=== PATIENT | female | born 1970 | race Caucasian/White ===

== ENCOUNTER 2017-02-09 11:50 | Emergency (ER) | payer OTHER ==
[2017-02-09 12:03] VITALS: RESP 20; O2SAT 94
[2017-02-09] MEDS ORDERED: ONDANSETRON DISINTEGRATING 4 MG TAB PO ONE (12:28)
--- NOTE | 2017-02-09 12:33 | EDPHY ---
H & P Time Seen by Provider: 02/09/17 12:10 HPI/ROS: CHIEF COMPLAINT: Nausea, headache and back pain after fall History by patient HISTORY OF PRESENT ILLNESS: 38-year-old woman presents complaining of persistent nausea, headache, and back and tailbone pain after she slipped and fell down some bleachers 2 days ago. She denies any neck pain. She says she slid down on her back and tailbone. She did not hit her head she did not pass out. She denies any visual difficulty, focal numbness or weakness, bowel or bladder dysfunction. She has not actually vomited. She is able to eat and drink without difficulty. Pain is worse when she moves around and better when she is sitting or lying but she is able to sit on her tailbone without difficulty. She went to urgent care today to be seen because of feeling unwell and they did x-rays and told her there was no evidence of fracture but referred her here because of her nausea. She has taken some ibuprofen at home with minimal relief. She has no history of migraines. She said she went to work today but she was feeling unwell every time she got up and moved around prompting her to seek medical attention. REVIEW OF SYSTEMS: As in HPI, and all other systems reviewed and are negative Smoking Status: Heavy smoker Physical Exam: General Appearance: Alert, well-appearing. Eyes: Pupils equal and round no pallor or injection. ENT, Mouth: Mucous membranes moist. Gastrointestinal: Abdomen is soft and nontender, no masses, bowel sounds normal. Neurological: Awake, alert and oriented x 3, no pronator drift, normal gait, no pronator drift, DTRs 2+ and equal bilaterally in knees and ankles, motor 5/5 equal bilaterally in lower extremities, no pain with straight leg raise Back: No bony tenderness, positive ecchymoses lateral to upper lumbar spine, lower T-spine, no CVA tenderness Skin: Warm and dry, no rashes. Musculoskeletal: Neck is supple nontender. Positive large ecchymoses left buttock Extremities are symmetrical, full range of motion. Psychiatric: Patient has normal affect, there is no agitation. Constitutional: Initial Vital Signs Temperature (C) 37 C 02/09/17 11:59 Heart Rate 77 02/09/17 11:59 Respiratory Rate 20 02/09/17 11:59 Blood Pressure 135/88 H 02/09/17 11:59 O2 Sat (%) 94 02/09/17 11:59 O2 Delivery Mode Room Air Allergies/Adverse Reactions: dicloxacillin [Dicloxacillin] Allergy (Verified 02/09/17 11:59) Penicillins Allergy (Verified 02/09/17 11:59) Home Medications: Medication Instructions Recorded Zoloft 100mg (RX) 12/31/13 Lidocaine 5% [Lidoderm 5% Patch 1 ea TD DAILY #30 patch 02/09/17 (*)] Ondansetron Odt [Zofran Odt 4 mg 4 mg PO Q4 #12 tab 02/09/17 (*)] MDM/Departure - [facility] ED Course/Re-evaluation: 46-year-old woman presents complaining of ongoing back pain as well as headache and some nausea but no vomiting and normal neurologic exam after a fall 2 days ago. Exam is unremarkable. There is no evidence of significant neurologic impairment or systemic toxicity. I reviewed the L-spine x-rays she brought from urgent care which showed no evidence of fracture. Patient was given ODT Zofran. She will be discharged home with Zofran and lidocaine patches and recommending continuing ibuprofen and taking Tylenol as needed without for pain. - Depart Disposition: Home, Routine, Self-Care Clinical Impression: Nausea alone, Back pain due to injury Condition: Good Instructions: Low Back Strain (ED) Additional Instructions: You were seen by Dr. Dasha Elliott today. Take Zofran as needed for nausea. Take ibuprofen and/or Tylenol as needed for pain. Use lidocaine patches as needed for pain. Follow up with the primary care physician as needed. Return for any worsening or new concerns. Stand Alone Forms: Work Excuse Prescriptions: Lidocaine 5% [Lidoderm 5% Patch (*)] 1 ea TD DAILY #30 patch Ondansetron Odt [Zofran Odt 4 mg (*)] 4 mg PO Q4 #12 tab
[2017-02-09 12:44] VITALS: BP 135/69; PULSE 87; TEMP 98.2
== END 2017-02-09 12:48 | disposition home or self-care (01) ==
LOC: CED 11:50
DX: S29.9XXA Unspecified injury of thorax, initial encounter (principal); R11.0 Nausea; F17.200 Nicotine dependence, unspecified, uncomplicated; W01.0XXA Fall on same level from slipping, tripping and stumbling without subsequent striking against object, initial encounter